=== PATIENT | female | born 1950 | race Two or more races ===

== ENCOUNTER 2017-12-07 21:29 | Inpatient (IN) | payer OTHER ==
[~2017-12-07] VITALS: Ht 167.6 cm; Wt 103.0 kg
[2017-12-07] MEDS ORDERED: SYNTHROID137 MCG (22:23)
[2017-12-07] MEDS ORDERED: ATORVASTATIN CA10 MG (22:24)
[2017-12-07] MEDS ORDERED: HYDROCHLOROTH12.5 MG (22:24)
[2017-12-07] MEDS ORDERED: ZANTAC150 M3 (22:24)
[2017-12-13] MEDS ORDERED: PROBIOTIC & AC1 EACH PO (14:24)
== END 2017-12-13 15:26 | disposition home or self-care (01) | DRG 392 ==
LOC: ER 21:29 → SURG 12-08 12:41 → SEC-K 12-08 12:41 → SURG 12-08 17:23
PROC: BW21Y0Z Computerized Tomography (CT Scan) of Abdomen and Pelvis using Other Contrast, Unenhanced and Enhanced (ICD-10-PCS; principal; 2017-12-11)
PROC: 3E0436Z Introduction of Nutritional Substance into Central Vein, Percutaneous Approach (ICD-10-PCS; 2017-12-11)
PROC: 05H533Z Insertion of Infusion Device into Right Subclavian Vein, Percutaneous Approach (ICD-10-PCS; 2017-12-11)
DX: K57.32 Diverticulitis of large intestine without perforation or abscess without bleeding (principal); E03.8 Other specified hypothyroidism; E78.4 Other hyperlipidemia

== ENCOUNTER 2018-06-18 12:00 | Inpatient (IN) | payer OTHER ==
[~2018-06-18] VITALS: Ht 167.6 cm; Wt 95.7 kg
[~2018-06-18 12:00] MED LIST: ATORVASTATIN CA10 MG; HYDROCHLOROTH12.5 MG; PROBIOTIC & AC1 EACH PO; SYNTHROID137 MCG; ZANTAC150 M3
== END 2018-06-27 15:58 | disposition home or self-care (01) | DRG 331 ==
LOC: SURG 06-24 05:15 → O/R 06-24 05:20 → SURG 06-24 05:20
PROVIDERS: Colon & Rectal Surgery
PROC: 0DTP4ZZ Resection of Rectum, Percutaneous Endoscopic Approach (ICD-10-PCS; 2018-06-24)
PROC: 0DJD8ZZ Inspection of Lower Intestinal Tract, Via Natural or Artificial Opening Endoscopic (ICD-10-PCS; 2018-06-24)
PROC: 3E0336Z Introduction of Nutritional Substance into Peripheral Vein, Percutaneous Approach (ICD-10-PCS; 2018-06-24)
PROC: 0DTN4ZZ Resection of Sigmoid Colon, Percutaneous Endoscopic Approach (ICD-10-PCS; principal; 2018-06-24 05:15)
DX: K57.32 Diverticulitis of large intestine without perforation or abscess without bleeding (principal); E78.4 Other hyperlipidemia; E03.8 Other specified hypothyroidism

== ENCOUNTER 2019-07-03 08:10 | Day surgery (SDC) | payer OTHER | END 2019-07-03 13:05 | disposition home or self-care (01) | LOC: AMB-ENDOS 08:10 | DX: K57.32 Diverticulitis of large intestine without perforation or abscess without bleeding (principal); K64.1 Second degree hemorrhoids ==

== ENCOUNTER 2021-07-11 08:00 | Outpatient (CLI) | payer OTHER | END 2021-07-11 08:30 | disposition home or self-care (01) | LOC: PPH VACUNA 08:00 | PROVIDERS: ATTEND Emergency Medicine Pediatric Emergency Medicine | DX: Z23 Encounter for immunization (principal) ==